=== PATIENT | female | born 1995 | race Caucasian/White ===

== ENCOUNTER → 2017-09-11 | Outpatient (CLI) | payer OTHER, BC ==
[2015-09-02 20:00] VITALS: BP 119/73
[~2017-09-11] MED LIST: CEPH-264 PO; FLUC150T PO; NITR100C62 PO; ONDA4TAB12 PO; PHEN-318 PO; SERT50TA PO; SULF1TAB24 PO
--- NOTE | 2017-09-11 14:13 | RAD ---
Pelvic ultrasound dated 09/11/2017. No comparison available. Clinical data indication: Pelvic pain for months. FINDINGS: Transabdominal and transvaginal imaging performed. The uterus measures 8.0 x 4.4 x 2.8 cm. No focal uterine mass. Endometrial complex is normal in thickness for age measuring 2 mm. Right ovary measures 2.5 x 1.3 x 1.4 cm. Left ovary measures 1.8 x 1.2 x 2.0 cm. Normal appearing follicles. No adnexal mass. Trace amount of free pelvic fluid. IMPRESSION: 1. No acute sonographic abnormality. 2. Trace amount of free pelvic fluid, nonspecific. Electronically signed by: Nigel Streeter MD (09/11/2017 2:10 PM) [id number]
== END | disposition home or self-care (01) ==
LOC: US 13:06
PROVIDERS: ATTEND Physician Assistant Medical
DX: R10.2 Pelvic and perineal pain (principal)
CPT/HCPCS: 76830; 76856

== ENCOUNTER 2017-09-17 01:53 | Emergency (ER) | payer BC, OTHER ==
[~2017-09-17] VITALS: Ht 160 cm; Wt 68.2 kg
[~2017-09-17 01:53] MED LIST changes: -CEPH-264 PO
[2017-09-17 01:57] VITALS: BP 124/90
[2017-09-17] MEDS ORDERED: CEPHALEXIN 250 MG CAPSULE PO ONE (02:00)
[2017-09-17] MEDS ORDERED: CEPH-264 PO (02:00)
[2017-09-17 02:14] LABS: CLARITY,URINE CLEAR
[2017-09-17 02:15] LABS: BILIRUBIN,URINE NEG (NEG); COLOR,URINE ORANGE
[2017-09-17] MEDS ORDERED: traMADol 50 MG TABLET PO ONE (02:15)
[2017-09-17 02:17] LABS: BACTERIA,URINE 0 /HPF (0-FEW); RBC,URINE 0 /HPF (0-2)
--- NOTE | 2017-09-17 03:49 | ED.ADGEN ---
Past History Past Medical History: UTI Past Surgical History: Tonsillectomy Smoking: Non-smoker Alcohol Use: None Drug Use: None Adult General Chief Complaint Chief Complaint urinary frequency HPI HPI Patient is a 22 year old female resents with urinary frequency urgency and burning starting yesterday. No nausea vomiting flank pain. History of recurrent urinary tract infections. No vaginal discharge or bleeding. Last menstrual period was greater than one month ago. Patient has on control pill and has period every 3 months. [] Review of Systems Review of Systems ROS as per HPI [] All other systems were reviewed and found to be within normal limits, except as documented in this note. Current Medications Current Medications Current Medications Medications (Trade) Dose Ordered Sig/Jaswinder Start Time Stop Time Status Last Admin Dose Admin Cephalexin HCl (Keflex) 500 mg 1X ONCE 09/17/17 02:00 09/17/17 02:14 DC 09/17/17 02:10 500 MG Tramadol HCl (Ultram) 100 mg 1X ONCE 09/17/17 02:15 09/17/17 02:16 DC 09/17/17 02:09 100 MG Allergies Allergies Allergies Uncoded Allergies Type Severity Reaction Last Updated Verified chocolate Allergy Mild Nausea and Vomiting 05/28/14 Physical Exam Physical Exam Constitutional: Well developed, well nourished. [] HENT: Normocephalic, atraumatic, bilateral external ears normal, oropharynx moist, nose normal. [] Eyes: PERRLA, EOMI, conjunctiva normal, no discharge. [] Lungs & Thorax: Bilateral breath sounds clear to auscultation [] Abdomen: Bowel sounds normal, soft, SP tenderness. [] Skin: Warm, dry, no erythema, no rash. [] Back: No tenderness, no CVA tenderness. [] Extremities: No tenderness. [] Neurologic: Alert and oriented X 3, normal motor function, normal sensory function, no focal deficits noted. [] Psychologic: Affect normal, judgement normal, mood normal. [] Current Patient Data Vital Signs Vital Signs Date Time Temp Pulse Resp B/P (MAP) Pulse Ox O2 Delivery O2 Flow Rate FiO2 09/17/17 02:09 18 98 09/17/17 01:57 97.9 102 Room Air Lab Results Laboratory Tests Test 09/17/17 02:06 Urine Collection Type Unknown Urine Color Valencia Urine Clarity Clear Urine pH 6.5 Urine Specific Bradford <=1.005 Urine Protein (NEG-TRACE) Urine Glucose (UA) mg/dL (NEG) Urine Ketones (Stick) mg/dL (NEG) Urine Blood (NEG) Urine Nitrite (NEG) Urine Bilirubin Neg (NEG) Urine Urobilinogen Dipstick mg/dL (0.2 mg/dL) Urine Leukocyte Esterase (NEG) Urine RBC 0 /HPF (0-2) Urine WBC 5-10 /HPF (0-4) Urine Squamous Epithelial Cells None /LPF Urine Bacteria 0 /HPF (0-FEW) EKG EKG [] Radiology/Procedures Radiology/Procedures [] Course & Med Decision Making Course & Med Decision Making Pertinent Labs and Imaging studies reviewed. 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 Abx, pain medications provided in the ED. Will tx empirically, recommendations are for close PCP f/u. Rtn precautions reviewed. ] Final Impression Final Impression [1. UTI] Dragon Disclaimer Dragon Disclaimer This electronic medical record was generated, in whole or in part, using a voice recognition dictation system. ANGEL HOWELL DO Sep 17, 2017 03:48
== END 2017-09-17 02:11 | disposition home or self-care (01) ==
LOC: ER 01:53
DX: N39.0 Urinary tract infection, site not specified (principal); Z91.018 Allergy to other foods
CPT/HCPCS: 81001; 87086; 99283; 99284

== ENCOUNTER 2017-09-24 13:53 | Emergency (ER) | payer BC, OTHER ==
[~2017-09-24] VITALS: Ht 160 cm; Wt 68.0 kg
[~2017-09-24 13:53] MED LIST changes: +CEPH-264 PO
[2017-09-24 14:05] VITALS: BP 136/82
[2017-09-24] MEDS ORDERED: CIPR250T30 PO (14:51)
[2017-09-24] MEDS ORDERED: TRAM-48 PO (14:51)
[2017-09-24] MEDS ORDERED: PHEN100T82 PO (14:51)
--- NOTE | 2017-09-24 14:51 | PHYS DOC ---
Past History Past Medical History: UTI Past Surgical History: Tonsillectomy Smoking: Non-smoker Alcohol Use: Occasionally Drug Use: None Adult General Chief Complaint Chief Complaint: PAIN ON URINATION [facility] HPI Patient is a [22] year old [female] who presents with complaining of painful urination. Patient states she has had frequent UTIs since age of 6 and seen by several urologists without abnormal finding. Patient complaining of urinary frequency and dysuria since this morning like her previous episodes of UTI without abdominal pain, fever and chills, vaginal bleeding or discharge. Patient states she had another episode of UTI about 10 days ago and treated with Keflex. Review of Systems Review of Systems Constitutional: Denies fever or chills [] Eyes: Denies change in visual acuity, redness, or eye pain [] HENT: Denies nasal congestion or sore throat [] Respiratory: Denies cough or shortness of breath [] Cardiovascular: No additional information not addressed in HPI [] GI: Reports abdominal pain, nausea, denies vomiting, bloody stools or diarrhea [ ] : Reports dysuria , denies hematuria [] Musculoskeletal: Denies back pain or joint pain [] Integument: Denies rash or skin lesions [] Neurologic: Denies headache, focal weakness or sensory changes [] Endocrine: Denies polyuria or polydipsia [] All other systems were reviewed and found to be within normal limits, except as documented in this note. Allergies Allergies Allergies Uncoded Allergies Type Severity Reaction Last Updated Verified chocolate Allergy Mild Nausea and Vomiting 05/28/14 Physical Exam Physical Exam Constitutional: Well developed, well nourished, mild distress, non-toxic appearance. [] HENT: Normocephalic, atraumatic, oropharynx moist, no oral exudates, nose normal. [] Eyes: PERRLA, EOMI, conjunctiva normal, no discharge. [] Neck: Normal range of motion, no tenderness, supple, no stridor. [] Cardiovascular:Heart rate regular rhythm, no murmur [] Lungs & Thorax: Bilateral breath sounds clear to auscultation [] Abdomen: Bowel sounds normal, soft, no tenderness, no masses, no pulsatile masses. [] Skin: Warm, dry, no erythema, no rash. [] Back: No tenderness, no CVA tenderness. [] Extremities: No tenderness, no cyanosis, no clubbing, ROM intact, no edema. [] Neurologic: Alert and oriented X 3, normal motor function, normal sensory function, no focal deficits noted. [] Psychologic: Affect normal, judgement normal, mood normal. [] Current Patient Data Vital Signs Vital Signs Date Time Temp Pulse Resp B/P (MAP) Pulse Ox O2 Delivery O2 Flow Rate FiO2 09/24/17 14:05 98.2 114 16 96 Room Air Lab Results Laboratory Tests Test 09/24/17 13:48 POC Urine HCG, Qualitative hcg negative (Negative) EKG EKG [] Radiology/Procedures Radiology/Procedures [] Course & Med Decision Making Course & Med Decision Making Pertinent Labs reviewed. (See chart for details) Evaluation of patient in ER showed 22-year-old female patient with history of frequent urinary tract infection presented with urinary frequency and dysuria since this morning. Patient had unremarkable physical exam. UA showed large leukocyte without nitrite. Patient did not want to have treatment in ER. Plan discharge patient home with prescription of Cipro, Ultram and Pyridium and instruction to follow up with her primary care physician. [] Dragon Disclaimer Dragon Disclaimer This electronic medical record was generated, in whole or in part, using a voice recognition dictation system. Departure Departure: Impression: Primary Impression: Urinary tract infection Disposition: HOME, SELF-CARE (at 1449) Condition: STABLE Referrals: DIONISIO FLOOD (PCP) Patient Instructions: Urinary Tract Infection Additional Instructions: Drink plenty of liquids Follow-up with your primary care physician in 3-5 days Return to ER if not getting better Scripts Phenazopyridine Hcl (PYRIDIUM) 100 Mg Tablet 100 MG PO BID PRN for PAIN, #20 TAB Prov: GALI VALERO MD 09/24/17 Tramadol Hcl (ULTRAM) 50 Mg Tablet 50 MG PO PRN Q6HRS PRN for PAIN, #14 TAB Prov: GALI VALERO MD 09/24/17 Ciprofloxacin Hcl (CIPRO) 250 Mg Tablet 1 TAB PO BID, #14 TAB Prov: GALI VALERO MD 09/24/17 GALI VALEOR MD Sep 24, 2017 14:51
[2017-09-24 15:10] LABS: BILIRUBIN,URINE NEG (NEG); CLARITY,URINE CLOUDY; COLOR,URINE YELLOW
[2017-09-24 15:11] LABS: BACTERIA,URINE FEW /HPF (0-FEW); GLUCOSE,URINE NEG (NEG); NITRITE,URINE NEG (NEG); RBC,URINE RARE /HPF (0-2); SQUAMOUS EPITHELIAL CELL,UR OCC /LPF; UROBILINOGEN,URINE 0.2 mg/dL (0.2 mg/dL); WBC,URINE >40 /HPF (0-4)
== END 2017-09-24 14:57 | disposition home or self-care (01) ==
LOC: ER 13:53
DX: N39.0 Urinary tract infection, site not specified (principal); Z87.440 Personal history of urinary (tract) infections; Z91.018 Allergy to other foods
CPT/HCPCS: 81001; 81025; 87086; 99284

== ENCOUNTER 2017-11-29 17:19 | Emergency (ER) | payer BC, OTHER ==
[~2017-11-29] VITALS: Ht 160 cm; Wt 68.0 kg
[~2017-11-29 17:19] MED LIST changes: +CIPR250T30 PO; +PHEN100T82 PO; +TRAM-48 PO
--- NOTE | 2017-11-29 17:38 | PHYS DOC ---
Past History Past Medical History: UTI Past Surgical History: Tonsillectomy Smoking: Non-smoker Alcohol Use: Occasionally Drug Use: None Adult General Chief Complaint Chief Complaint: PAIN ON URINATION HPI HPI 22-year-old female presents the emergency department with urinary frequency, dysuria that is burning, urgency and suprapubic cramping that started about 4 hours ago. She states that she has a long history of urinary tract infections ever since the age of 6. She states that it is been looked into by a urologist but an anatomic etiology has not been found. She states her symptoms are identical in character and severity as multiple previous urinary tract infections. She denies any chills, nausea, vomiting or flank pain. Review of Systems Review of Systems Constitutional: Denies fever or chills Eyes: Denies change in visual acuity, redness, or eye pain HENT: Denies nasal congestion or sore throat Respiratory: Denies cough or shortness of breath Cardiovascular: No additional information not addressed in HPI GI: Denies nausea, vomiting, bloody stools or diarrhea : Denies dysuria or hematuria Musculoskeletal: Denies back pain or joint pain Integument: Denies rash or skin lesions Neurologic: Denies headache, focal weakness or sensory changes Endocrine: Denies polyuria or polydipsia All other systems were reviewed and found to be within normal limits, except as documented in this note. Allergies Allergies Allergies Uncoded Allergies Type Severity Reaction Last Updated Verified chocolate Allergy Mild Nausea and Vomiting 05/28/14 Physical Exam Physical Exam GENERAL: Awake, alert, well appearing, nontoxic HEAD/NECK/EYES: Normocephalic, Neck supple, PERRL ENT Airway patent, mucous membranes moist RESP: Nontachypneic, no respiratory distress, normal breath sounds bilaterally CV: Regular rhythm, normal perfusion ABD/GI: Soft, mild suprapubic tenderness to palpation, no right lower quadrant or left lower quadrant tenderness, negative Crum sign, no CVA tenderness BACK: Inspection NL EXT: Neurovascularly intact, no deformities SKIN: Warm, dry NEURO: Oriented X3, normal speech, no motor deficits, no sensory deficits, CN II - XII intact PSYCH: Cooperative, appropriate affect EKG EKG [] Radiology/Procedures Radiology/Procedures [] Impressions: Acute lower urinary tract infection Course & Med Decision Making Course & Med Decision Making Reviewed patient's previous culture and determine that best treatment strategy will be Rocephin x 1 here in the ER. No sign or symptom of pyelonephritis and therefore Laurence is okay to send her home with. Both of these were effective against her previous Escherichia coli UTI. Monae Disclaimer Fazalon Disclaimer This electronic medical record was generated, in whole or in part, using a voice recognition dictation system. Departure Departure: Referrals: DIONISIO FLOOD (PCP) PEGGY AVILA DO Nov 29, 2017 17:38
[2017-11-29 17:39] VITALS: BP 123/87
[2017-11-29] MEDS ORDERED: NITR100C62 PO (17:40)
[2017-11-29 17:49] LABS: COLOR,URINE YELLOW
[2017-11-29 17:50] LABS: BACTERIA,URINE MANY /HPF (0-FEW); BILIRUBIN,URINE NEG (NEG); CLARITY,URINE CLOUDY; GLUCOSE,URINE NEG (NEG); NITRITE,URINE NEG (NEG); RBC,URINE OCC /HPF (0-2); SQUAMOUS EPITHELIAL CELL,UR FEW /LPF; UROBILINOGEN,URINE 0.2 mg/dL (0.2 mg/dL); WBC,URINE 20-40 /HPF (0-4)
[2017-11-29] MEDS: NITROFURANTOIN MONOHYD/M-CRYST 100 MG CAPSULE. PO ONE (18:02)
[2017-11-29] MEDS: cefTRIAXone IM 1 GM VIAL IM ONE (18:02)
[2017-11-29] MEDS: traMADol 50 MG TABLET PO ONE (18:18)
== END 2017-11-29 18:24 | disposition home or self-care (01) ==
LOC: ER 17:19
DX: N39.0 Urinary tract infection, site not specified (principal); Z87.440 Personal history of urinary (tract) infections; Z91.018 Allergy to other foods
CPT/HCPCS: 81001; 87086; 96372; 99284; J0696; 87186

== ENCOUNTER 2020-02-28 21:57 | Emergency (ER) | payer BC, OTHER ==
[~2020-02-28] VITALS: Ht 160 cm; Wt 68.2 kg
--- NOTE | 2020-02-28 21:59 | PHYS DOC ---
Past History Past Medical History: UTI Past Surgical History: Tonsillectomy Smoking: Non-smoker Alcohol Use: Occasionally Drug Use: None General Adult HPI: HPI: "I feel..like maybe...I hurt my back.. I ve got really bad Rt flank pain.. I have had UTI that feel like this... but not so severe..." Patient is a 24 year old female who presents with above hx and complaints of severe rt. flanki back pain. Patient gives no specific history of trauma. Pain is localized in right flank and appears to have some muscle spasms in the lumbar sacral area. No problems with defecation. No problems with urination. No history of fever or chills. No history of IV drug use. No history of cancer. No history of immunosuppression. No history of renal stones with her family members. DTRs +2 patella. Is amatory without problems. Follows with Yi for care. Review of Systems: Review of Systems: Constitutional: Denies fever or chills Eyes: Denies change in visual acuity HENT: Denies nasal congestion or sore throat Respiratory: Denies cough or shortness of breath Cardiovascular: Denies chest pain or edema GI: Denies abdominal pain, nausea, vomiting, bloody stools or diarrhea : Denies dysuria Musculoskeletal: Complains of severe right flank back pain Integument: Denies rash Neurologic: Denies headache, focal weakness or sensory changes Endocrine: Denies polyuria or polydipsia Lymphatic: Denies swollen glands Psychiatric: Denies depression or anxiety Family History: Family History: Noncontributory to presentation Current Medications: Current Meds: See nursing for home meds Allergies: Allergies: Allergies Uncoded Allergies Type Severity Reaction Last Updated Verified chocolate Allergy Mild Nausea and Vomiting 05/28/14 Physical Exam: PE: Constitutional: Well developed, well nourished, no acute distress, non-toxic appearance. [] HENT: Normocephalic, atraumatic, bilateral external ears normal, oropharynx moist, no oral exudates, nose normal. [] Eyes: PERRLA, EOMI, conjunctiva normal, no discharge. [] Neck: Normal range of motion, no tenderness, supple, no stridor. [] Cardiovascular:Heart rate regular rhythm, no murmur [] Lungs & Thorax: Bilateral breath sounds clear to auscultation [] Abdomen: Bowel sounds normal, soft, no tenderness, no masses, no pulsatile masses. [] Skin: Warm, dry, no erythema, no rash. [] Back: No tenderness, no CVA tenderness. [] Extremities: No tenderness, no cyanosis, no clubbing, ROM intact, no edema. [] Neurologic: Alert and oriented X 3, normal motor function, normal sensory function, no focal deficits noted. [] Psychologic: Affect normal, judgement normal, mood normal. [] EKG: EKG: [] Radiology/Procedures: Radiology/Procedures: [][address] [address] IMAGING REPORT Signed PATIENT: LOBITO CHILEL ACCOUNT: [id number] : 1995 LOCATION: ER AGE: 24 SEX: F EXAM STATUS: REG ER ORD. PHYSICIAN: SONIYA ZHANG MD REASON: rT. FLANK PAIN PROCEDURE: CT ABDOMEN PELVIS WO CONTRAST PQRS Compliance Statement: One or more of the following individualized dose reduction techniques were utilized for this examination: 1. Automated exposure control 2. Adjustment of the mA and/or kV according to patient size 3. Use of iterative reconstruction technique CT abdomen/pelvis without contrast 02/28/2020 12:26 AM INDICATION: Right flank pain COMPARISON: None available TECHNIQUE: Multiple axial CT images of the abdomen and pelvis were obtained without intravenous contrast. Coronal and sagittal reformats are provided. FINDINGS: Lung bases are clear. Heart size within normal limits. Evaluation of solid abdominal viscera is limited by lack of intravenous contrast. Liver, spleen, bilateral adrenal glands, pancreas and gallbladder are normal in appearance. The abdominal aorta is normal in course and caliber. There are no pathologically enlarged lymph nodes in the abdomen and pelvis. There is no abdominal free fluid. There is no free intraperitoneal air. Trace pelvic free fluid may be physiologic. Uterus is normal in appearance. Follicular changes are identified in the right adnexa. Small and large bowel are normal in caliber. There is no evidence for bowel obstruction. There are no pericolonic inflammatory changes. A normal, nondilated appendix is visualized without adjacent inflammatory changes. The kidneys are relatively symmetric in appearance. There is no suspicious renal mass within the limitations of a noncontrast examination. There is no hydronephrosis. There are no calculi within the kidneys, ureters or urinary bladder. Urinary bladder is within normal limits given degree of distention. No suspicious osseous abnormality is identified. IMPRESSION: Follicular changes are identified in the right adnexa with trace free fluid which may be physiologic. If there is persistent clinical concern, further characterization with pelvic ultrasound could be of benefit. No CT findings to suggest obstructive uropathy. Electronically signed by: Harper Quevedo MD (02/29/2020 12:56 AM) [facility] DICTATED AND SIGNED BY: HARPER QUEVEDO MD DATE: 02/29/2051 CC: SONIYA ZHANG MD; DIONISIO FLOOD ~MTH0 0 Heart Score: Risk Factors: Risk Factors: DM, Current or recent (<one month) smoker, HTN, HLP, family history of CAD, obesity. Risk Scores: Score 0 - 3: 2.5% MACE over next 6 weeks - Discharge Home Score 4 - 6: 20.3% MACE over next 6 weeks - Admit for Clinical Observation Score 7 - 10: 72.7% MACE over next 6 weeks - Early Invasive Strategies Course & Med Decision Making: Course & Med Decision Making Pertinent Labs and Imaging studies reviewed. (See chart for details) Patient take Tylenol and ibuprofen for pain. Patient push fluids. Patient take Keflex 500 mg 3 times a day. Follow-up urine culture. Did discuss with patient options of waiting for cultures on urine since findings were somewhat limited on urine dip. No findings of surgical pathology noted on CT. Patient return if any concerns. Impression: 1. Right flank and lumbar pain 2. Hx Dysuria [] Dragon Disclaimer: Dragon Disclaimer: This electronic medical record was generated, in whole or in part, using a voice recognition dictation system. Departure Departure: Referrals: DIONISIO FLOOD (PCP) Scripts Cephalexin (KEFLEX) 500 Mg Capsule 500 MG PO TID for dysuria for 7 Days, BOTTLE Prov: SONIYA ZHANG MD 02/29/20 Monae Disclaimer This chart was dictated in whole or in part using Voice Recognition software in a busy, high-work load, and often noisy Emergency Department environment. It may contain unintended and wholly unrecognized errors or omissions. SONIYA ZHANG MD Feb 28, 2020:59
[2020-02-28 23:17] LABS: BARBITURATES NEG (NEG); BENZODIAZEPINES NEG (NEG); CANNABINOIDS NEG (NEG); COCAINE NEG (NEG); METHADONE NEG (NEG); OPIATES NEG (NEG); PHENCYCLIDINE NEG (NEG)
[2020-02-28 23:18] LABS: AMPHETAMINE/METHAMPHETAMINE NEG (NEG)
[2020-02-28 23:23] LABS: BILIRUBIN,URINE NEG (NEG); CLARITY,URINE CLEAR; COLOR,URINE YELLOW; GLUCOSE,URINE NEG (NEG); NITRITE,URINE NEG (NEG); RBC,URINE 0 /HPF (0-2); UROBILINOGEN,URINE 0.2 mg/dL (0.2 mg/dL); WBC,URINE OCC /HPF (0-4)
[2020-02-28 23:24] LABS: BACTERIA,URINE 0 /HPF (0-FEW); SQUAMOUS EPITHELIAL CELL,UR MOD /LPF
[2020-02-29] MEDS ORDERED: KETOROLAC 30 MG/ML VIAL. IVP ONE (00:15)
--- NOTE | 2020-02-29 00:58 | RAD ---
PQRS Compliance Statement: One or more of the following individualized dose reduction techniques were utilized for this examinat ion: 1. Automated exposure control 2. Adjustment of the mA and/or kV according to patient size 3. Use of iterative reconstruction technique CT abdomen/pelvis without contrast 02/28/2020 12:26 AM INDICATION: Right flank pain COMPARISON: None available TECHNIQUE: Multiple axial CT images of the abdomen and pelvis were obtained without intravenous contr ast. Coronal and sagittal reformats are provided. FINDINGS: Lung bases are clear. Heart size within normal limits. Evaluation of solid abdominal viscera is limit ed by lack of intravenous contrast. Liver, spleen, bilateral adrenal glands, pancreas and gallbladder are normal in appearance. The abdominal aorta is normal in course and caliber. There are no patholog ically enlarged lymph nodes in the abdomen and pelvis. There is no abdominal free fluid. There is no free intraperitoneal air. Trace pelvic free fluid may be physiologic. Uterus is normal in appearance. Follicular changes are identified in the right adnexa. Small and large bowel are normal in caliber. There is no evidence for bowel obstruction. There are no pericolonic inflammatory changes. A normal, nondilated appendix is visualized without adjacent infla mmatory changes. The kidneys are relatively symmetric in appearance. There is no suspicious renal mass within the limi tations of a noncontrast examination. There is no hydronephrosis. There are no calculi within the kid neys, ureters or urinary bladder. Urinary bladder is within normal limits given degree of distention. No suspicious osseous abnormality is identified. IMPRESSION: Follicular changes are identified in the right adnexa with trace free fluid which may be physiologic. If there is persistent clinical concern, further characterization with pelvic ultrasound could be of benefit. No CT findings to suggest obstructive uropathy. Electronically signed by: Betty Coleman MD (02/29/2020 12:56 AM) [facility]
[2020-02-29] MEDS ORDERED: CEPHALEXIN 250 MG CAPSULE PO ONE (01:45)
[2020-02-29] MEDS ORDERED: CEPH-264 PO (01:48)
[2020-02-29] MEDS ORDERED: CEPHALEXIN 250 MG CAPSULE ONE (01:54)
[2020-02-29 02:05] VITALS: BP 135/72
== END 2020-02-29 02:05 | disposition home or self-care (01) ==
LOC: ER 21:57
DX: M54.5 Low back pain (principal); R30.0 Dysuria; Z87.440 Personal history of urinary (tract) infections; Z91.018 Allergy to other foods
CPT/HCPCS: 36415; 74176; 80307; 81001; 81025; 99284